=== PATIENT | female | born 1995 | race Caucasian/White ===

== ENCOUNTER 2018-05-10 10:06 | Day surgery (SDC) | payer BC, OTHER ==
[~2018-05-10] VITALS: Ht 167.6 cm; Wt 96.0 kg
[~2018-05-10 10:06] MED LIST: BUPIVACAINE/PF-EPI 0.5% 1:200K ONE
[2018-05-10] MEDS ORDERED: LACTATED RINGERS 1,000 ML IV SCH (10:29)
[2018-05-10] MEDS ORDERED: APREPITANT 40 MG CAPSULE PO ONE (10:30)
[2018-05-10 10:35] VITALS: BP 131/97
[2018-05-10] MEDS ORDERED: APREPITANT 40 MG CAPSULE ONE (10:40)
[2018-05-10] MEDS ORDERED: CEFE2VIA3 IVPB (10:48)
[2018-05-10] MEDS ORDERED: ETHI1TAB26 PO (10:48)
[2018-05-10] MEDS ORDERED: MIDAZOLAM 1 MG/ML, 2ML ONE (10:55)
[2018-05-10] MEDS ORDERED: FENTANYL PF 100 MCG/2ML ONE ×3 (10:55→11:49)
[2018-05-10] MEDS ORDERED: PLEASE ENTER ALLERGIES MC SCH (11:00)
[2018-05-10] MEDS ORDERED: PLEASE ENTER HEIGHT AND WEIGHT MC SCH (11:00)
[2018-05-10] MEDS ORDERED: PROPOFOL 10 MG/ML, 20ML ONE ×2 (11:18)
[2018-05-10 11:37] LABS: HCG UR SG 1.037 (1.003-1.030)
[2018-05-10] MEDS ORDERED: MEPERIDINE/PF 50 MG/ML ONE (11:37)
[2018-05-10] MEDS: MEPERIDINE/PF 25MG/0.5ML IVPush PRN ×2 (11:39→11:47)
[2018-05-10] MEDS ORDERED: OXYcodone 5 MG/5 ML ORAL.SOL UDC ONE (11:49)
[2018-05-10] MEDS ORDERED: FENTANYL PF 100 MCG/2ML IV PRN (12:00)
[2018-05-10] MEDS ORDERED: HYDROcodone/APAP 7.5-325MG/15ML UDC PO PRN (12:00)
[2018-05-10] MEDS ORDERED: HYDROmorphone 1 MG/ML, 1ML IV PRN (12:00)
[2018-05-10] MEDS ORDERED: KETOROLAC 30 MG/1 ML IV PRN ×2 (12:00)
[2018-05-10] MEDS ORDERED: ACETAMINOPHEN 325 MG TABLET PO PRN (12:00)
[2018-05-10] MEDS ORDERED: OXYcodone 5 MG/5 ML ORAL.SOL UDC PO PRN (12:00)
[2018-05-10] MEDS ORDERED: MORPHINE SULFATE 4 MG/ML, 1ML IVPush PRN (12:00)
[2018-05-10] MEDS ORDERED: KETOROLAC 30 MG/1 ML ONE (16:18)
== END 2018-05-10 13:55 | disposition home or self-care (01) ==
LOC: OUT 10:06
PROVIDERS: ATTEND Surgery
DX: L02.412 Cutaneous abscess of left axilla (principal); Z98.890 Other specified postprocedural states; Z72.89 Other problems related to lifestyle
CPT/HCPCS: 10060; 81025; 87070; 87075; 87205; J1885; J2175; J2250; J2704; J3010; J7120; J8501